=== PATIENT | female | born 1980 | race African-American/Black ===

== ENCOUNTER 2018-03-28 03:45 | Emergency (ER) | payer BC ==
[2018-03-28] MEDS: HYDROCODONE/APAP (5/325) TAB PO (06:35)
[2018-03-28] MEDS: ONDANSETRON (ODT) 4 MG TAB ODT (06:36)
== END 2018-03-28 06:41 | disposition home or self-care (01) ==
LOC: FTE 03:45
DX: M25.512 Pain in left shoulder (principal); M25.522 Pain in left elbow; M79.1 Myalgia; M79.672 Pain in left foot; M54.9 Dorsalgia, unspecified
CPT/HCPCS: 99283